=== PATIENT | male | born 1995 | race Hispanic/Latino ===

== ENCOUNTER 2018-02-09 19:39 | Emergency (ER) | payer OTHER ==
[2018-02-09] MEDS ORDERED: LIDOCAINE 1% MPF 5 ML VIAL ONE ×2 (20:06→22:04)
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
== END 2018-02-09 22:46 | disposition home or self-care (01) ==
LOC: ER 19:39
PROC: 0JQ10ZZ Repair Face Subcutaneous Tissue and Fascia, Open Approach (ICD-10-PCS; principal; 2018-02-09)
DX: S01.112A Laceration without foreign body of left eyelid and periocular area, initial encounter (principal); S00.93XA Contusion of unspecified part of head, initial encounter; Y08.89XA Assault by other specified means, initial encounter; Y93.9 Activity, unspecified; Y92.149 Unspecified place in prison as the place of occurrence of the external cause
CPT/HCPCS: 70450; 99284